=== PATIENT | male | born 1960 | race Caucasian/White ===

== ENCOUNTER 2017-09-15 09:39 | Inpatient (IN) | payer SELFPAY ==
[~2017-09-15] VITALS: Ht 172.7 cm; Wt 70.3 kg
[2017-09-15 12:47] LABS: BASOPHILS % 2.6 % (0.0-2.0); EOSINOPHILS % 1.7 % (0.0-5.0); LYMPHOCYTES % 20.3 % (20.0-50.0); MEAN CORPUSCULAR HEMOGLOBIN 18.8 pg (28.0-32.0); MEAN CORPUSCULAR VOLUME 62.4 fL (80.0-94.0); MEAN PLATELET VOLUME 7.4 fl (7.4-10.4); MONOCYTES % 9.9 % (2.0-8.0); NEUTROPHILS % 65.5 % (40.0-76.0); PLATELET 311 x1000/uL (130-400); RED BLOOD CELL COUNT 2.88 mill/uL (4.7-6.1); RED CELL DISTRIBUTION WIDTH 16.6 % (11.6-14.6)
[2017-09-15 12:55] LABS: *AMPHETAMINES SCREEN URINE NEGATIVE (NEGATIVE); *BARBITURATES SCREEN URINE NEGATIVE (NEGATIVE); *BENZODIAZEPINES SCREEN URINE NEGATIVE (NEGATIVE); *COCAINE SCREEN URINE NEGATIVE (NEGATIVE); CANNABINOID URINE SCREEN NEGATIVE (NEGATIVE); METHADONE URINE SCREEN NEGATIVE (NEGATIVE); OPIATES URINE SCREEN NEGATIVE (NEGATIVE); PHENCYCLIDINE URINE SCREEN NEGATIVE (NEGATIVE)
[2017-09-15 12:57] LABS: HEMOGLOBIN. 5.4 g/dL (14.0-18.0)
[2017-09-15 12:58] LABS: CHLORIDE 105 mEq/L (98-107); ETHANOL BLOOD < 10 mg/dL
[2017-09-15 12:59] LABS: INR 1.1; PARTIAL THROMBOPLASTIN TIME 23.5 sec (23.4-31.0); PROTHROMBIN TIME 10.9 sec (9.4-11.6)
[2017-09-15] MEDS ORDERED: LORAZEPAM 1MG TABLET PO ONE (13:00)
[2017-09-15 13:51] LABS: PLATELET ESTIMATE NORMAL
[2017-09-15 16:24] LABS: TOTAL IRON BINDING CAPACITY 518 ug/dL (250-450)
[2017-09-15] MEDS ORDERED: PANTOPRAZOLE SODIUM 40 MG/VIAL IV SCH (16:45)
[2017-09-15 17:41] LABS: HEMATOCRIT 18.7 % (42.0-52.0); HEMOGLOBIN 5.4 g/dL (14.0-18.0)
[2017-09-15 21:19] LABS: FERRITIN < 5 ng/mL (22-322)
[2017-09-15 21:59] LABS: VITAMIN B12 SERUM 261 pg/mL (211-911)
[2017-09-15 22:16] LABS: FOLIC ACID (FOLATE) SERUM > 20.00 ng/mL (>5.38)
[2017-09-15 22:20] VITALS: BP 141/67
[2017-09-15 23:15] VITALS: BP 133/56
[2017-09-15] MEDS ORDERED: LORAZEPAM 0.5MG TABLET PO PRN (23:45)
[2017-09-15] MEDS ORDERED: ONDANSETRON HCL 4MG/2ML VIAL IV PRN (23:45)
[2017-09-15] MEDS ORDERED: ACETAMINOPHEN 325MG TABLET PO PRN (23:45)
[2017-09-15] MEDS ORDERED: DIPHENHYDRAMINE 50MG/ML VIAL IV PRN (23:45)
[2017-09-15] MEDS ORDERED: CYANOCOBALAMIN 1000MCG/ML VIAL IM NR (23:45)
[2017-09-15] MEDS ORDERED: MAGNESIUM/ALUMINUM HYDROXIDE/SIMETHICONE 30ML UDC PO PRN (23:45)
[2017-09-16] VITALS: BP 120/72
[2017-09-16] MEDS: PANTOPRAZOLE SODIUM 40 MG/VIAL IV SCH ×3 (00:41→20:50)
[2017-09-16] MEDS: IRON SUCROSE COMPLEX 100 MG/5 ML ML IV SCH ×2 (00:41→20:49)
[2017-09-16] MEDS: SODIUM CHLORIDE 0.9% 1,000 ML IV SCH (00:55)
[2017-09-16 02:08] LABS: HEMOGLOBIN 7.2 g/dL (14.0-18.0)
[2017-09-16 04:00] VITALS: BP 119/50
[2017-09-16 06:51] LABS: INR 1.1; PARTIAL THROMBOPLASTIN TIME 25.9 sec (23.4-31.0); PROTHROMBIN TIME 11.2 sec (9.4-11.6)
[2017-09-16 07:08] LABS: BASOPHILS % 1.7 % (0.0-2.0); EOSINOPHILS % 2.5 % (0.0-5.0); HEMOGLOBIN. 7.5 g/dL (14.0-18.0); LYMPHOCYTES % 9.2 % (20.0-50.0); MEAN CORPUSCULAR HEMOGLOBIN 21.5 pg (28.0-32.0); MEAN PLATELET VOLUME 8.2 fl (7.4-10.4); MONOCYTES % 7.9 % (2.0-8.0); NEUTROPHILS % 78.7 % (40.0-76.0); PLATELET 294 x1000/uL (130-400); RED BLOOD CELL COUNT 3.48 mill/uL (4.7-6.1); RED CELL DISTRIBUTION WIDTH 24.8 % (11.6-14.6)
[2017-09-16 08:00] VITALS: BP 142/76
[2017-09-16] MEDS ORDERED: BACTERIOSTATIC SODIUM CHLORIDE 0.9% 30ML VIAL IJ ONE (10:13)
[2017-09-16] MEDS ORDERED: MIDAZOLAM HCL 5 MG/5 ML VIAL ONE (11:53)
[2017-09-16] MEDS ORDERED: FENTANYL CITRATE/PF 50MCG/ML 2ML VIAL ONE (11:53)
[2017-09-16] MEDS ORDERED: MIDAZOLAM HCL 2 MG/2 ML VIAL IV PRN (11:59)
[2017-09-16 12:00] VITALS: BP 104/63
[2017-09-16] MEDS ORDERED: FENTANYL CITRATE/PF 50MCG/ML 2ML VIAL IV PRN (12:00)
[2017-09-16 16:00] VITALS: BP 124/66
[2017-09-16] MEDS ORDERED: SORBITOL 70% SOLN 30ML PO NR ×2 (16:00→20:00)
[2017-09-16 20:00] VITALS: BP 121/58
[2017-09-17] VITALS: BP 116/65
[2017-09-17 04:00] VITALS: BP 119/59
[2017-09-17] MEDS: SODIUM CHLORIDE 0.9% 1,000 ML IV SCH (06:47)
[2017-09-17 08:39] VITALS: BP 102/50
[2017-09-17] MEDS: PANTOPRAZOLE SODIUM 40 MG/VIAL IV SCH (08:52)
[2017-09-17 12:36] VITALS: BP 123/95
[2017-09-17] MEDS ORDERED: MIDAZOLAM HCL 5 MG/5 ML VIAL ONE (13:21)
[2017-09-17] MEDS ORDERED: FENTANYL CITRATE/PF 50MCG/ML 2ML VIAL ONE (13:22)
[2017-09-17] MEDS ORDERED: MIDAZOLAM HCL 5 MG/5 ML VIAL IV PRN (13:26)
[2017-09-17] MEDS ORDERED: FENTANYL CITRATE/PF 50MCG/ML 2ML VIAL IV PRN (13:27)
[2017-09-17 15:39] VITALS: BP 115/51
[2017-09-17] MEDS ORDERED: BACTERIOSTATIC SODIUM CHLORIDE 0.9% 30ML VIAL IJ ONE (15:47)
[2017-09-17 16:30] VITALS: BP 115/51
[2017-09-17] MEDS ORDERED: FERROUS SULFATE 325MG TABLET PO SCH (17:40)
[2017-09-18] MEDS ORDERED: OMEPRAZOLE 20MG CAPSULE EXTENDED RELEASE PO SCH (07:10)
== END 2017-09-17 17:20 | disposition home or self-care (01) | DRG 241 ==
LOC: ER 11:09 → 8WST 13:23 → ENRESERV 20:13
PROVIDERS: ADMIT Internal Medicine; ATTEND Internal Medicine
PROC: 0DB98ZX Excision of Duodenum, Via Natural or Artificial Opening Endoscopic, Diagnostic (ICD-10-PCS; 2017-09-15)
PROC: 0DBN8ZZ Excision of Sigmoid Colon, Via Natural or Artificial Opening Endoscopic (ICD-10-PCS; 2017-09-16)
PROC: 0DB68ZX Excision of Stomach, Via Natural or Artificial Opening Endoscopic, Diagnostic (ICD-10-PCS; principal; 2017-09-16 12:00)
PROC: 30233N1 Transfusion of Nonautologous Red Blood Cells into Peripheral Vein, Percutaneous Approach (ICD-10-PCS; 2017-09-17)
DX: K29.70 Gastritis, unspecified, without bleeding (principal); K25.4 Chronic or unspecified gastric ulcer with hemorrhage; D50.9 Iron deficiency anemia, unspecified; F10.20 Alcohol dependence, uncomplicated; I10 Essential (primary) hypertension; F32.9 Major depressive disorder, single episode, unspecified; B96.81 Helicobacter pylori [H. pylori] as the cause of diseases classified elsewhere; D12.5 Benign neoplasm of sigmoid colon; F17.210 Nicotine dependence, cigarettes, uncomplicated; F41.9 Anxiety disorder, unspecified
CPT/HCPCS: 36415; 71045; 76700; 80053; 80076; 80305; 82607; 82728; 82746; 83540; 83550; 83690; 83880; 84443; 84484; 85014; 85018; 85025; 85044; 85610; 85730; 86677; 86850; 86900; 86920; 88305; 88312; 88313; 93005; C9113; G0482; J2250; J3010; J3420; J3490; J7030; J7040; P9016